=== PATIENT | female | born 1990 | race Caucasian/White ===

== ENCOUNTER 2017-11-10 18:32 | Emergency (ER) | payer OTHER ==
[2017-11-10] MEDS: AMOXICILLIN 500 MG CAP PO (20:14)
== END 2017-11-10 20:18 | disposition home or self-care (01) ==
LOC: M ED 18:32
DX: J02.0 Streptococcal pharyngitis (principal); Z87.891 Personal history of nicotine dependence
CPT/HCPCS: 87880